=== PATIENT | male | born 1970 | race African-American/Black ===

== ENCOUNTER 2018-01-10 07:10 | Day surgery (SDC) | payer MEDICARE, MEDICAID ==
[~2018-01-10] VITALS: Ht 195.6 cm; Wt 131.5 kg
--- NOTE | ~2018-01-10 | OP ---
PATIENT NAME: ANNAMARIE CARRION MEDICAL RECORD: [id number] :74 LOCATION:[facility] ADMISSION DATE: SURGEON: REJI JACOME MD DATE OF OPERATION: 01/10/2018 PREOPERATIVE DIAGNOSES: 1. Hidradenitis. 2. Anxiety. 3. Diabetes mellitus. 4. Tobacco dependence syndrome. POSTOPERATIVE DIAGNOSES: 1. Hidradenitis. 2. Anxiety. 3. Diabetes mellitus. 4. Tobacco dependence syndrome. PROCEDURES: 1. Excision of hidradenitis from the right upper inner thigh, 10 x 4 cm. 2. Excision of hidradenitis from the inferior scrotum, 4 x 3 cm. 3. Excision of right posterior neck cyst, 3 cm. SURGEON: Reji Jacome MD REPORT OF PROCEDURE: The patient's right posterior neck and the groin region were all prepped and draped in sterile fashion. We approached the upper inner thigh first. Transversely, there was an area of scar tissue with chronic inflammation present. The tissue on either side of this appeared to be normal. We made an elliptical incision around this including all the inflammatory tissue. Electrocautery was used to dissect through the subcutaneous tissues down well into the fatty tissue that was present. Any bleeding was treated with electrocautery. There were few vessels that had to be ligated with 3-0 silks. Once the tissue was completely excised, we irrigated out the wound thoroughly with normal saline. The subcutaneous tissues were reapproximated with interrupted 3-0 Vicryls and the skin was closed with running subcutaneous 5-0 Monocryl. We then approached the scrotum, and on the most inferior aspect of the scrotum, extending to the left side, there were some inflammatory scars present. Again, an ovoid incision was made around this, 3 x 4 cm in size. Electrocautery was used to dissect through the subcutaneous tissue until we encountered the fascial layer. This tissue was completely excised and sent off for permanent specimen. Upon doing this, we encountered a small opening that was present from a previous I&D on the right inguinal crease. There was some mucinous-type material present, but no sign of any derrick purulence. This area was irrigated out thoroughly with normal saline and cleaned off appropriately. We then irrigated out the wound with normal saline and assured there was no sign of any bleeding. The subcutaneous tissues were then reapproximated with interrupted 3-0 Vicryl and the skin was closed transversely with running 5-0 Monocryl. We then approached the right posterior neck. A 3-cm ovoid incision was made overlying the cyst. Electrocautery was used to dissect through the subcutaneous tissues and we came completely around this. This mass was sent off for permanent specimen. The subcutaneous tissues were irrigated out and then reapproximated with interrupted 3-0 Vicryl. A 10 mL of 0.25% Marcaine plain was infused into the tissues around the neck incision. We then reapproximated the skin using running 5-0 Monocryl in the subcutaneous fascia. OPERATIVE REPORT [id number] ANNAMARIE CARRION COMPLICATIONS: None. CONDITION: Stable. ANESTHESIA: General endotracheal and local. BLOOD LOSS: 50 mL. TRANSINT:[id number] Voice Confirmation ID: [id number] DOCUMENT ID: [id number] REJI JACOME MD at 1319 CC: [id number] DICTATION DATE: 01/10/18 1139 INTERN: 01/10/18 1227 [facility] 01/10/18 [facility] [address] [place] [address]
[~2018-01-10 07:10] MED LIST: CELEXA40 MG PO; DILAUDID2 MG PO; GLIPIZIDE10 MG PO; GLUCOTROL 5 MG T5 MG PO; HUMIRA20 MG/0.4 SQ; HYDROCODONE-APA1 TAB PO; KLONOPIN1 MG PO; LORATAB; ONGLYZA5 MG PO; PAXIL40 MG PO; PROZAC20 MG PO; SEROQUEL50 MG PO; TRADJENTA5 MG PO; ULTRAM50 MG PO; VOLTAREN75 MG PO; ZESTRIL40 MG PO
[2018-01-10 08:06] LABS: BASOPHILS 0.2 % (0-2); EOSINOPHILS 1.6 % (0-7); HEMATOCRIT 34.7 % (42.0-54.0); HEMOGLOBIN 11.2 g/dL (13.5-17.5); IMMATURE GRANULOCYTES 0.3 % (0-5); LYMPHOCYTES 38.5 % (15-50); MCH 24.3 pg (26.0-34.0); MCHC 32.3 g/dL (31.0-37.0); MCV 75.3 fL (80.0-100.0); MEAN PLATELET VOLUME 9.8 fL (7.4-10.4); MONOCYTES 8.4 % (2-11); RBC 4.61 10x6/uL (4.20-6.10); RDW 16.2 % (11.5-14.5); WBC 8.7 10x3/uL (4.8-10.8)
[2018-01-10 08:07] LABS: PLATELET COUNT 245 10x3/uL (130-400)
[2018-01-10 08:23] LABS: CALC OSMOLALITY 285 mosm/kg (275-300); CALCIUM 8.7 mg/dL (8.5-10.1); CHLORIDE - SERUM 105 mmol/L (98-107); CREATININE - SERUM 0.9 mg/dL (0.6-1.3); GLUCOSE 191 mg/dL (74-106); POTASSIUM - SERUM 3.9 mmol/L (3.5-5.1); SODIUM 141 mmol/L (136-145); UREA NITROGEN 12 mg/dL (7-18); eGFR NON AFRICAN AMERICAN > 90 mL/min (90-120)
[2018-01-10 08:27] VITALS: BP 147/86; Ht 195.6 cm; Wt 131.5 kg
[2018-01-10] MEDS ORDERED: PERCOCET 10/3251 TA1 PO (11:34)
== END 2018-01-10 13:30 | disposition home or self-care (01) ==
LOC: D.OPS 07:10 → D.PAN 08:45 → D.OPS 08:45
PROVIDERS: Surgery
DX: L73.2 Hidradenitis suppurativa (principal); L72.0 Epidermal cyst; F41.9 Anxiety disorder, unspecified; E11.9 Type 2 diabetes mellitus without complications; F17.200 Nicotine dependence, unspecified, uncomplicated; I10 Essential (primary) hypertension; K21.9 Gastro-esophageal reflux disease without esophagitis; Z01.812 Encounter for preprocedural laboratory examination; D29.4 Benign neoplasm of scrotum

== ENCOUNTER 2018-02-14 08:59 | Day surgery (SDC) | payer MEDICARE, MEDICAID ==
[~2018-02-14] VITALS: Ht 195.6 cm; Wt 133.8 kg
--- NOTE | ~2018-02-14 | OP ---
PATIENT NAME: ANNAMARIE CARRION MEDICAL RECORD: [id number] :74 LOCATION:[facility] ADMISSION DATE: SURGEON: ANGELIA JACOME MD DATE OF OPERATION: 02/14/2018 PREOPERATIVE DIAGNOSES: 1. Right posterior neck sebaceous cyst. 2. Hidradenitis suppurativa. 3. Hypertension. 4. Diabetes mellitus. 5. Anxiety disorder. 6. Tobacco dependence syndrome. POSTOPERATIVE DIAGNOSES: 1. Right posterior neck sebaceous cyst. 2. Hidradenitis suppurativa. 3. Hypertension. 4. Diabetes mellitus. 5. Anxiety disorder. 6. Tobacco dependence syndrome. PROCEDURE: Excision of right posterior neck 1.5 sebaceous cyst. SURGEON: Angelia Jacome MD REPORT OF PROCEDURE: The patient's right posterior neck was prepped and draped in sterile fashion. A transverse incision in an ovoid fashion was made overlying the skin of this inflamed cystic cavity. Electrocautery was used to dissect through the subcutaneous tissues and around this fatty inflammatory tissue. At the conclusion of this, there was just normal appearing fatty tissue visible. There was some spillage of what appeared to be purulent type material. The cystic cavity was not sent off for permanent specimen as it was significantly damaged from the electrocautery. We then irrigated out the wound bed using hydrogen peroxide and saline solution. We assured there was no sign of any active bleeding. The subcutaneous tissue was then reapproximated with an interrupted 3-0 Vicryl and the skin was closed with running subcutaneous 5-0 Monocryl. A 10 mL of 0.25% Marcaine with epinephrine was infused into the surrounding tissues and the wound was dressed appropriately. COMPLICATIONS: None. CONDITION: Stable. ANESTHESIA: General endotracheal and local. BLOOD LOSS: Minimal. TRANSINT:[id number] Voice Confirmation ID: [id number] DOCUMENT ID: [id number] OPERATIVE REPORT [id number] ANNAMARIE CARRION ANGELIA JACOME MD at 0841 CC: [id number] DICTATION DATE: 02/14/18 1135 NURSE REVIEWER: 02/14/[address] [facility] 02/14/18 [place] [address]
[~2018-02-14 08:59] MED LIST changes: +PERCOCET 10/3251 TA1 PO
[2018-02-14 09:40] VITALS: BP 159/102; Ht 195.6 cm; Wt 133.8 kg
[2018-02-14 11:27] LABS: BASOPHILS 0.3 % (0-2); HEMATOCRIT 36.3 % (42.0-54.0); HEMOGLOBIN 12.1 g/dL (13.5-17.5); IMMATURE GRANULOCYTES 0.2 % (0-5); LYMPHOCYTES 26.9 % (15-50); MCH 24.7 pg (26.0-34.0); MCHC 33.3 g/dL (31.0-37.0); MCV 74.2 fL (80.0-100.0); MEAN PLATELET VOLUME 10.9 fL (7.4-10.4); NEUTROPHILS 63.6 % (40-80); PLATELET COUNT 259 10x3/uL (130-400); RBC 4.89 10x6/uL (4.20-6.10); RDW 15.6 % (11.5-14.5); WBC 9.6 10x3/uL (4.8-10.8)
[2018-02-14] MEDS ORDERED: HYDROCODONE-APA1 TAB PO (11:29)
[2018-02-14 11:39] LABS: CALC OSMOLALITY 273 mosm/kg (275-300); CALCIUM 9.1 mg/dL (8.5-10.1); CARBON DIOXIDE 25.2 mmol/L (21.0-32.0); CHLORIDE - SERUM 104 mmol/L (98-107); CREATININE - SERUM 0.8 mg/dL (0.6-1.3); GLUCOSE 196 mg/dL (74-106); SODIUM 134 mmol/L (136-145); UREA NITROGEN 15 mg/dL (7-18); eGFR NON AFRICAN AMERICAN > 90 mL/min (90-120)
[2018-02-14 11:40] LABS: POTASSIUM - SERUM 4.3 mmol/L (3.5-5.1)
== END 2018-02-14 13:07 | disposition home or self-care (01) ==
LOC: D.OPS 08:59
PROVIDERS: Anesthesiology
DX: L72.3 Sebaceous cyst (principal); L73.2 Hidradenitis suppurativa; I10 Essential (primary) hypertension; E11.9 Type 2 diabetes mellitus without complications; F41.9 Anxiety disorder, unspecified; F17.200 Nicotine dependence, unspecified, uncomplicated; Z01.812 Encounter for preprocedural laboratory examination